=== PATIENT | male | born 1970 | race Caucasian/White ===

== ENCOUNTER 2024-09-21 09:14 | Outpatient (RCR) | payer OTHER, SELFPAY ==
--- NOTE | 2024-09-21 16:17 | HP.OTEVAL_ITS ---
Patient's Visit Information Visit Information Visit Information: LUIS RUSHING is a 54 year old M, referred to Occupational Therapy by Dr. Mason Rebolledo, DO, with a diagnosis of radial nerve lesion. Date of Evaluation: 09/21/24 Occupational Therapist: Bernadette Velazquez OTR/Cuate, CHT Subjective Subjective: This 54 year old male was seen for OT eval with dx of a displaced comminuted fx of left humerus left arm -lesion of radial nerve DOI 09/09/24 fall - Went to ER. Pt then was able to have sx on 09/15/24. 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 pt states he will return to Next week and will initiate PT at [facility] or [place] due to his drive. Pain left UE: Current Pain Intensity: 2 Pain Intensity Range: 2 and 3 ROM ROM Comments: pt demo with left wrist drop consistent with radial nerve lesion. Strength Strength Comments: will test later date 6 weeks s/p Quick DASH-Disab of Arm,Shoulder& Hand Quick DASH Score: 83.3325 Goals Goal:ROM equal to unaffected hand: Yes Goal:Supervisor Machining/Pinch strength at least 75% of unaffected hand: Yes Goal:No pain with affected hand use: Yes Goal:Full use of affected hand in daily activities including work: Yes Goal:Decrease scar hypersensitivity: Yes Rehabilitation General Assessment: pt demo with left wrist drop and demo need for radial nerve palsy orthosis- Pt demo need for skilled OT services to [facility]. custom radial nerve orthosis. Today therapist gretel. and ed, pt on wear and care- ed. pt that nerve does take increased time and may become painful or sharp shooting pain. Pt demo understanding and agree to POC. Rehabilitation Potential: Good Anticipated Interventions Anticipated Interventions: A/AAROM/PROM, Scar Care, Triggerpoint Release, Sensory Retraining, Modalities, Orthoses, Education re assistive Equipment, Education re Diagnosis, Caregiver Training and Home Program Visit Plan Frequency: Every Other Week Duration: 4 Months General Plan: orthosis gretel. for radial nerve palsy for left UE Will have PT at [facility] for left UE TEXT: Thank you for the opportunity to evaluate your patient. For Medicare and Medicare HMO plans, please review the plan of care and approve it. It will need to be FAXED BACK to us at [phone] for Medicare purposes. Please let me know if there are questions or concerns regarding this plan of care. Physician Signature: Date:
--- NOTE | 2024-09-21 16:17 | HP.OTEVAL_ITS ---
Patient's Visit Information Visit Information Visit Information: LUIS RUSHING is a 54 year old M, referred to Occupational Therapy by Dr. Mason Rebolledo, DO, with a diagnosis of radial nerve lesion. Date of Evaluation: 09/21/24 Occupational Therapist: Bernadette Velazquez OTR/Cuate, CHT Subjective Subjective: This 54 year old male was seen for OT eval with dx of a displaced comminuted fx of left humerus left arm -lesion of radial nerve DOI 09/09/24 fall - Went to ER. Pt then was able to have sx on 09/15/24. 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 pt states he will return to Next week and will initiate PT at [facility] or [place] due to his drive. Pain left UE: Current Pain Intensity: 2 Pain Intensity Range: 2 and 3 ROM ROM Comments: pt demo with left wrist drop consistent with radial nerve lesion. Strength Strength Comments: will test later date 6 weeks s/p Quick DASH-Disab of Arm,Shoulder& Hand Quick DASH Score: 83.3325 Goals Goal:ROM equal to unaffected hand: Yes Goal:Equipment Service Associate/Pinch strength at least 75% of unaffected hand: Yes Goal:No pain with affected hand use: Yes Goal:Full use of affected hand in daily activities including work: Yes Goal:Decrease scar hypersensitivity: Yes Rehabilitation General Assessment: pt demo with left wrist drop and demo need for radial nerve palsy orthosis- Pt demo need for skilled OT services to [facility]. custom radial nerve orthosis. Today therapist gretel. and ed, pt on wear and care- ed. pt that nerve does take increased time and may become painful or sharp shooting pain. Pt demo understanding and agree to POC. Rehabilitation Potential: Good Anticipated Interventions Anticipated Interventions: A/AAROM/PROM, Scar Care, Triggerpoint Release, Sensory Retraining, Modalities, Orthoses, Education re assistive Equipment, Education re Diagnosis, Caregiver Training and Home Program Visit Plan Frequency: Every Other Week Duration: 4 Months General Plan: orthosis gretel. for radial nerve palsy for left UE Will have PT at [facility] for left UE TEXT: Thank you for the opportunity to evaluate your patient. For Medicare and Medicare HMO plans, please review the plan of care and approve it. It will need to be FAXED BACK to us at [phone] for Medicare purposes. Please let me know if there are questions or concerns regarding this plan of care. Physician Signature: Date:
--- NOTE | 2025-01-29 16:14 | HP.OT.NRP ---
Patient Information Patient Information: LUIS RUSHING was seen in my office for initial evaluation on 09/21/24. The following Plan of Care was established for this patient: POC Established Initial Frequency: Every Other Week Initial Duration: 4 Months Anticipated Interventions Anticipated Interventions: A/AAROM/PROM, Scar Care, Triggerpoint Release, Sensory Retraining, Modalities, Orthoses, Education re assistive Equipment, Education re Diagnosis, Caregiver Training and Home Program Last Seen Last Seen: This patient was last seen in our office 09/21/24. Pertinent comments regarding their Occupational therapy will appear below: pt seen for OT eval only. No further apts scheduled. due to time lapse in services pt is d/c at this time. At this point I will be discontinuing this patient from occupational therapy. I would be happy to see this patient again in the future if found appropriate by the physician. Thank you! Bernadette Velazquez, OTR/L, CHT
== END 2024-09-21 19:00 | disposition home or self-care (01) ==
LOC: OT 09:14
PROVIDERS: Referring Provider Student in an Organized Health Care Education/Training Program; Visit Provider Student in an Organized Health Care Education/Training Program
DX: S42.352D Displaced comminuted fracture of shaft of humerus, left arm, subsequent encounter for fracture with routine healing (principal); G56.32 Lesion of radial nerve, left upper limb
CPT/HCPCS: 97166; 97760